=== PATIENT | female | born 2000 | race Two or more races ===

== ENCOUNTER 2025-02-04 19:08 | Emergency (ER) | payer MEDICAID, SELFPAY ==
[2025-02-04 19:10] VITALS: BP 153/84; RESP 19; TEMP 36.3; O2SAT 100; BMI 41.5
[2025-02-04 19:29] VITALS: PULSE 100; RESP 18; O2SAT 99
[2025-02-04 19:47] VITALS: BP 136/89; PULSE 101
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
[2025-02-04] MEDS: NAPROXEN 250 MG TABLET 500 MG PO (20:10)
[2025-02-04] MEDS: DIAZEPAM 5 MG TABLET 10 MG PO (20:11)
== END 2025-02-04 20:46 | disposition home or self-care (01) ==
LOC: SERX 20:19
PROVIDERS: Emergency Provider Emergency Medicine; PCP Family Medicine
DX: F43.9 Reaction to severe stress, unspecified (principal); S39.92XA Unspecified injury of lower back, initial encounter; V89.2XXA Person injured in unspecified motor-vehicle accident, traffic, initial encounter; Y92.410 Unspecified street and highway as the place of occurrence of the external cause
CPT/HCPCS: 99282; A9270